=== PATIENT | male | born 1940 | race Caucasian/White ===

== ENCOUNTER 2018-02-25 08:54 | Outpatient (CLI) | payer MEDICARE, MEDICAID | END 2018-02-25 23:59 | LOC: CARD DIAG 08:54 | PROVIDERS: ATTEND Internal Medicine Cardiovascular Disease | DX: I08.2 Rheumatic disorders of both aortic and tricuspid valves (principal); I10 Essential (primary) hypertension; E11.8 Type 2 diabetes mellitus with unspecified complications | CPT/HCPCS: 93306 ==

== ENCOUNTER 2022-07-01 18:34 | Emergency (ER) | payer MEDICARE, MEDICAID ==
[~2022-07-01] VITALS: Ht 167.6 cm; Wt 107.7 kg
[2022-07-01] MEDS ORDERED: TETanus/Pertussis (Acell)/Diphther VAC/PF (Tdap-Adult) 0.5ml syringe IMVAC ONE (19:05)
[2022-07-01] MEDS ORDERED: acetaminophen 325mg tablet PO ONE (21:50)
[2022-07-01] MEDS ORDERED: LIDOcaine 1% 30ml preserv. free vial IJ STA (22:44)
--- NOTE | 2022-07-02 00:50 | NUR ---
Patient AAOx3, status post fall; fall protocols completed without complication. Patient assisted to ambulate around unit. Will continue to monitor.
[2022-07-02 02:59] VITALS: BP 125/78
== END 2022-07-02 03:23 ==
LOC: ER 18:34
DX: S01.511A Laceration without foreign body of lip, initial encounter (principal); W19.XXXA Unspecified fall, initial encounter; Y93.89 Activity, other specified; Y92.89 Other specified places as the place of occurrence of the external cause; Y99.8 Other external cause status
CPT/HCPCS: 12011; 70450; 70486; 72125; 73110; 73130; 90471; 90715; 99285